=== PATIENT | male | born 1990 | race African-American/Black ===

== ENCOUNTER 2020-03-12 20:17 | Emergency (ER) | payer OTHER ==
[~2020-03-12] VITALS: Ht 185.4 cm; Wt 65.8 kg
[2020-03-12 20:23] VITALS: BP 136/84
--- NOTE | 2020-03-12 20:23 | NUR ---
ED Nurse Note: ambulated to ed c/o headache x 1 month. denies head injury. ambulatory to room with steady gait; denies visual disturbances. patient ao4 with no acute distress. vital stable. all safety measures met.
[2020-03-12] MEDS ORDERED: IBUPROFEN600 M1 ORAL (20:26)
--- NOTE | 2020-03-12 20:55 | Emergency Room Report ---
History of Present Illness General Chief Complaint: Headache Source: Patient Present Illness HPI This patient states that for the past month he has had an ongoing daily headache. He states it is primarily right-sided and behind his right eye. He states that when he was staying in [place] he was having sweating at night. However, he states that since being back in [place] he has not really had any night sweats. He has no other symptoms. He denies weakness. He denies tingling or numbness. He denies blurry vision. He denies nausea or vomiting. He denies trauma or injury. He has no other complaints. 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 Patient History Past Medical History: none, see triage record Social History: Reports: drug use - THC; Denies: smoking, alcohol use Reviewed Nursing Documentation: PMH: Agreed; PSxH: Agreed Nursing Documentation-PMH Past Medical History: No Stated History Review of Systems All Other Systems: negative except mentioned in HPI Physical Exam Vital Signs Date Time Temp Pulse Resp B/P (MAP) Pulse Ox O2 Delivery O2 Flow Rate FiO2 03/12/20 20:23 98.4 56 16 136/84 (101) 98 Room Air Sp02 EP Interpretation: reviewed, normal General Appearance: no apparent distress, alert, GCS 15, non-toxic Head: normocephalic, atraumatic Eyes: bilateral eye normal inspection, bilateral eye PERRL ENT: hearing grossly normal, normal pharynx, no angioedema, normal voice Neck: normal inspection, full range of motion, supple/symm/no masses Respiratory: no respiratory distress, no retraction, no accessory muscle use, speaking full sentences Cardiovascular #1: regular rate, rhythm, no edema Gastrointestinal: normal inspection Rectal: deferred Musculoskeletal: back normal, normal range of motion, gait/station normal, non- tender Neurologic: alert, motor strength/tone normal, oriented x3, sensory intact, responsive, speech normal Psychiatric: judgement/insight normal, memory normal, mood/affect normal, no suicidal/homicidal ideation Skin: no rash, normal color Medical Decision Making Diagnostic Impression: Primary Impression: Headache ER Course This patient is a clinical presentation consistent with chronic tension headache. CT the head was unremarkable. I obtained a CT given the length of sy mptoms and that this was newly developed over the past month. There were no red flags on physical exam or history. I do not suspect meningitis, intracranial bleed, sinusitis. No emergency medical condition was identified. This patient need to follow-up with his primary care physician and possibly a neurologist for his ongoing headache. The patient was given return precautions and followup instructions. CT/MRI/US Diagnostic Results CT/MRI/US Diagnostic Results : Imaging Test Ordered: CT head Impression No acute findings. Specifically no intracranial bleed, mass effect or edema. See official report. Last Vital Signs Date Time Temp Pulse Resp B/P (MAP) Pulse Ox O2 Delivery O2 Flow Rate FiO2 03/12/20 20:23 98.4 56 16 136/84 (101) 98 Room Air Status: improved Disposition: HOME, SELF-CARE Condition: Improved Patient Instructions: General Headache Without Cause, Tension Headache Sheron Menon DO Mar 12, 2020 20:55
--- NOTE | 2020-03-12 21:03 | Diagnostic Imaging Report ---
EXAM: CT Head Without Intravenous Contrast CLINICAL HISTORY: PAIN TECHNIQUE: Axial computed tomography images of the head/brain without intravenous contrast. CTDI is 53.4 mGy and DLP is 965.4 mGy-cm. One or more of the following dose reduction techniques were used: automated exposure control, adjustment of the mA and/or kV according to patient size, use of iterative reconstruction technique. COMPARISON: No relevant prior studies available. FINDINGS: Brain: No hemorrhage. No edema. Ventricles: No ventriculomegaly. Bones/joints: No acute fracture. Soft tissues: Unremarkable. Sinuses: No acute sinusitis. Mastoid air cells: No mastoid effusion. IMPRESSION: No acute intracranial process.
[2020-03-12 21:40] VITALS: BP 136/84
--- NOTE | 2020-03-12 21:40 | NUR ---
ER DISCHARGE NOTE: Patient is cleared to be discharged per ERMD, pt is aox4, on room air, with stable vital signs. pt was given dc instructions, pt was able to verbalize understanding, pt id band removed. pt is able to ambulate with steady gait. pt took all belongings.
== END 2020-03-12 21:40 | disposition home or self-care (01) ==
LOC: EMR 20:45
DX: G44.229 Chronic tension-type headache, not intractable (principal); F12.90 Cannabis use, unspecified, uncomplicated
CPT/HCPCS: 70450; U0002; Z7502; 99284

== ENCOUNTER 2020-03-20 18:52 | Emergency (ER) | payer OTHER ==
[~2020-03-20] VITALS: Ht 185.4 cm; Wt 65.8 kg
[~2020-03-20 18:52] MED LIST: IBUPROFEN600 M1 ORAL
[2020-03-20 19:19] VITALS: BP 112/61
--- NOTE | 2020-03-20 19:20 | NUR ---
Nurse Note: Pt walked in c/o RT lower jaw pain for over one week. Pt stated he went to a dentist and was dx wisdom teeth infection. Pt stated he has an appointment in Apr 2020. Pt stated he is taking amoxicillin and motrin. 12/13 pain
[2020-03-20] MEDS ORDERED: Bupivacaine 0.5% Inj 30 ml vial INJ ONE ×2 (19:24→19:30)
[2020-03-20] MEDS ORDERED: ACETAMINOPHEN-1 EAC1 ORAL (19:27)
--- NOTE | 2020-03-20 19:31 | Emergency Room Report ---
History of Present Illness General Chief Complaint: Toothache Source: Patient Present Illness HPI Disclaimer: Please note that this report is being documented using Smart GPS Backpack technology. This can lead to erroneous entry secondary to incorrect interpretation by the dictating instrument. HPI: 30-year-old male presents for evaluation of toothache. Patient reports pain in the bottom right molar for the past 2 weeks. He has seen dentistry and is scheduled for tooth extraction but not until April. He started on amoxicillin. Reports worsening pain and throbbing. Denies recent injury. He has a prior fracture in that area. Denies fever or chills. Denies gingival swelling skin breakdown, tongue swelling, difficulty tolerating secretions, other symptoms. PMH: Reviewed PSH: Reviewed Allergies: Reviewed Social Hx: Reviewed Allergies: Coded Allergies: No Known Allergies (Unverified , 03/12/20) COVID-19 Screening Contact w/high risk pt: No Experienced COVID-19 symptoms?: No COVID-19 Testing performed DETACHER: No Review of Systems All Other Systems: negative except mentioned in HPI Physical Exam Vital Signs Date Time Temp Pulse Resp B/P (MAP) Pulse Ox O2 Delivery O2 Flow Rate FiO2 03/20/20 19:14 98.4 62 16 112/61 (78) 97 Room Air General: Awake and alert, no acute distress HEENT: NC/AT. EOMI. uvula midline. No tongue or gingival or retropharyngeal edema or erythema. Tooth #32 appears fractured with mild erythema mild edema in the gingiva. No ulcerations or breakdown. No obvious abscess. Resp: Normal work of breathing Skin: Intact. No abrasions, laceration or rash over the exposed skin MSK: Normal tone and bulk. Moving all extremities. No obvious deformity. Neuro: Awake and alert. Mentating appropriately Medical Decision Making Diagnostic Impression: Primary Impression: Toothache ER Course Is a 30-year-old male presenting for evaluation of tooth ache. Consistent with subacute dental fracture. Patient is awaiting excision of his wisdom teeth and is currently on amoxicillin started by his dentist. Awaiting for his dental appointment but it is encouraged him to follow-up with dentistry sooner if possible for more rapid dental extraction. He will continue his amoxicillin. Offered if your alveolar nerve block the patient declined noting a fear of needles. He will follow up with a different dentist to see if he can get a faster extraction. Short course of pain medication prescribed. Instructed to return with new or worsening symptoms. He understands and agrees with this treatment plan. Last Vital Signs Date Time Temp Pulse Resp B/P (MAP) Pulse Ox O2 Delivery O2 Flow Rate FiO2 03/20/20 19:19 98.4 62 16 112/61 97 Room Air Disposition: HOME, SELF-CARE Condition: Stable Scripts Acetaminophen With Codeine (T#3) (TYLENOL #3 TAB*) Y Tab 1 TAB ORAL Q8H PRN for For Pain, #10 TAB Prov: Ziyad Chandra MD 03/20/20 Referrals: [facility](age 2-12) - Orthodontic Clinic - Hours: Mon,Mon,, 8:15am and 1pm (new patient screening), Tu. 1pm. Emergency clinic Monday - Monday 8:30am and 1pm, Tues. 1pm. *Call to check if clinic is open; No appointment necessary for the first visit (new patient screening), Arrive 15-30 minutes early as it is first come, first serve. [facility] - [facility] [place] Location: 2nd Floor Room [id number] [facility] INFO: Mon & Mon-8:30am-4:30pm, - 8:30am - 7pm, - Emergency only, Mon- 8:30am-11:30am and afternoon emergency only [facility] INFO: New Patient Screening: Mon- 8am-1pm Mon- 9am -5pm and Mon 2pm-5pm Patient Instructions: Dental Pain Additional Instructions: Follow-up with dentistry as soon as possible for tooth extraction. Continue amoxicillin as prescribed. Return with new or worsening symptoms. Ziyad Chandra MD Mar 20, 2020 19:31
[2020-03-20 19:32] VITALS: BP 112/61
--- NOTE | 2020-03-20 19:32 | NUR ---
ED Nurse Note: Pt cleared by health care Provider for discharge. DC instructions/prescription was given and explained to pt and verbalized understanding of teachings. Instructed pt to follow up with PCP and/or dentist as soon as possible. Resources provided. All medical deviecs such as ID band removed. Pt is AAO x4, ambulatory and left with all personal belongings.
== END 2020-03-20 19:32 | disposition home or self-care (01) ==
LOC: EMR 19:24
DX: S02.5XXA Fracture of tooth (traumatic), initial encounter for closed fracture (principal); K08.89 Other specified disorders of teeth and supporting structures; X58.XXXA Exposure to other specified factors, initial encounter; Y93.9 Activity, unspecified; Y92.9 Unspecified place or not applicable
CPT/HCPCS: S0020; Z7502; 99282